=== PATIENT | female | born 1955 | race Two or more races ===

== ENCOUNTER → 2020-08-04 16:05 | Outpatient (BNVA) | payer MEDICARE, MEDICAID, SELFPAY | PROVIDERS: PCP Registered Nurse; Visit Provider Nurse Practitioner | DX: Z13.89 Encounter for screening for other disorder (principal) | CPT/HCPCS: Q3014 ==

== ENCOUNTER 2020-08-05 09:54 | Outpatient (REF) | payer MEDICARE, MEDICAID, SELFPAY ==
[2020-08-05 10:24] LABS: MANUAL DIFF FLAG NO
[2020-08-05 10:28] LABS: Basophils Percent Auto 0.2 % (0-2); Eosinophils Percent Auto 0.3 % (0-4); Hematocrit 42.4 % (37-47); Hemoglobin 14.1 g/dl (12.0-16.0); Imm Gran Abs Auto 0.04 X10*3/uL (0.00-0.03); Imm Gran Pct Auto 0.4 % (0.0-0.4); Lymphocytes Absolute Auto 1.9 X10*3/uL (1.2-4.9); Lymphocytes Percent Auto 20.9 % (20-40); Mean Corpuscular HGB Conc 33.3 g/dl (31.0-35.0); Mean Corpuscular Hemoglobin 29.7 pg (27.0-33.0); Mean Corpuscular Volume 89.3 fL (80-98); Mean Platelet Volume 9.6 fL (9.4-12.3); Monocytes Absolute Auto 0.4 X10*3/uL (0.1-1.2); Monocytes Percent Auto 4.6 % (2-11); Neutrophils Absolute Auto 6.5 X10*3/uL (2.0-8.3); Neutrophils Percent Auto 73.6 % (45-73); Platelet Count 319 X10*3/uL (160-400); Red Blood Count 4.75 X10*6/uL (4.20-5.50); Red Cell Distribution Width 11.9 % (11.0-16.0); White Blood Count 8.9 X10*3/uL (4.8-10.8)
[2020-08-05 10:48] LABS: Alanine Aminotransferase 17 U/L (0-31); Alkaline Phosphatase 76 U/L (39-117); Anion Gap 12 (12-20); Aspartate Amino Transferase 18 U/L (5-31); Bilirubin Total 0.5 mg/dL (0.0-1.0); Blood Urea Nitrogen 5 mg/dL (9-16); C Reactive Protein 0.02 mg/dL (< or = 0.50); Calcium 9.8 mg/dL (8.4-10.2); Carbon Dioxide 29 mmol/L (22-29); Chloride 98 mmol/L (96-108); Estimated Glomerular Filt Rate > 60; Glucose Random 129 mg/dL (60-115); Sodium 135 mmol/L (135-145); Total Protein 7.4 g/dL (6.5-8.0)
[2020-08-06 14:01] LABS: Gliadin Deamidated IgA Ab 4 Units; Gliadin Deamidated IgG Ab 1 Units
[2020-08-07 14:22] LABS: Transglutaminase Ab IgG 1 U/mL; Transglutaminase IgA 1 U/mL
== END 2020-08-05 09:55 | disposition home or self-care (01) ==
LOC: HO.LAB 09:54
PROVIDERS: PCP Registered Nurse; Visit Provider Nurse Practitioner
DX: K29.70 Gastritis, unspecified, without bleeding (principal)
CPT/HCPCS: 36415; 80053; 83516; 85025; 86140

== ENCOUNTER 2020-08-17 07:19 | Outpatient (REF) | payer MEDICARE, MEDICAID, SELFPAY ==
--- NOTE | ~2020-08-17 | MR_ITS ---
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 MRCP sequences were also performed. FINDINGS: LUNG BASES: The visualized lung bases are unremarkable. LIVER, GALLBLADDER, AND BILIARY TREE: The liver is normal in size, smooth in contour, and normal in signal. There are several dark on T1 and bright on T2-weighted sequences lesions in the liver probably representing cysts or hemangiomas. The largest measures 1 x 1.6 cm in the caudate lobe. There is no intra or extrahepatic biliary duct dilatation. The common bile duct measures 3 mm. The gallbladder is unremarkable with no evidence of gallbladder wall thickening, or obvious pericholecystic inflammatory changes. PANCREAS: Unremarkable. The main pancreatic duct is normal. SPLEEN: Unremarkable. ADRENAL GLANDS: Unremarkable. KIDNEYS AND URETERS: The kidneys are normal in size and shape. No hydronephrosis. No perinephric stranding. GASTROINTESTINAL TRACT: No bowel obstruction. There may be diverticulosis of the colon. No ascites or fluid collection. ABDOMINAL WALL: No significant hernia is appreciated. LYMPH NODES: No lymphadenopathy. VASCULAR: Unremarkable. OSSEOUS STRUCTURES: Marrow signal normal. MR/MR MRCP IMPRESSION: Normal caliber intra and extrahepatic bile ducts. Several small liver lesions probably representing cysts or hemangiomas. Probable small cyst or hemangioma in the spleen.
== END 2020-08-17 07:20 | disposition home or self-care (01) ==
LOC: HO.MRI 07:19
PROVIDERS: PCP Hospitalist; Visit Provider Nurse Practitioner
DX: Q44.5 Other congenital malformations of bile ducts (principal); K29.70 Gastritis, unspecified, without bleeding; R68.81 Early satiety
CPT/HCPCS: 74181

== ENCOUNTER → 2020-08-19 09:25 | Outpatient (REF) | payer MEDICARE, MEDICAID, SELFPAY ==
--- NOTE | ~2020-08-19 | NM_ITS ---
EXAMINATION: NM THYROID UPTAKE AND SCAN CLINICAL INFORMATION: Nontoxic thyroid nodule. Left nodule biopsy 2017 was performed. COMPARISON: Ultrasound thyroid gland 12/19/2016 TECHNIQUE: Following the oral administration of 285 microcuries of I-123 sodium iodide, thyroid uptake was performed and expressed as a percentage of the administrated dose. Gamma scintillation camera images of the thyroid in the anterior and right and left anterior oblique views were obtained using a pinhole collimator following the administration of 10 mCi Tc-99m pertechnetate. FINDINGS: Radioiodine uptake is 9.53% at 4 hours and 13.39% at 24 hours. On thyroid scan, there is large activity seen in the mid to lower pole left thyroid lobe consistent with a large nodule as was noted on ultrasound exam 12/20/2016. Minimal to very little activity is seen in the upper pole of left thyroid gland. There is no iodine activity seen in the right thyroid gland following blocking of left thyroid activity by lead. NM/NM thyroid w uptake IMPRESSION: [id number] sized left nodule in the mid to lower pole left gland essentially taking up most of the iodine activity on technetium scan. It does not appear hyperactive on the scan. There is no technetium activity seen in the right thyroid gland and minimal activity in left upper pole thyroid lobe. Normal reactive iodine uptake at 4 hours and 24 hours. It appears most of the activity is coming from large left thyroid nodule.
== END ==
LOC: HO.NUCMED 09:25
PROVIDERS: PCP Registered Nurse; Visit Provider Registered Nurse
DX: E04.1 Nontoxic single thyroid nodule (principal)
CPT/HCPCS: 78014; A9512; A9516

== ENCOUNTER 2020-08-31 10:33 | Outpatient (REF) | payer MEDICARE, MEDICAID, SELFPAY ==
[2020-08-31 16:52] LABS: MANUAL DIFF FLAG NO
[2020-08-31 16:58] LABS: Basophils Percent Auto 0.3 % (0-2); Eosinophils Percent Auto 0.1 % (0-4); Hematocrit 43.9 % (37-47); Hemoglobin 14.6 g/dl (12.0-16.0); Imm Gran Abs Auto 0.03 X10*3/uL (0.00-0.03); Imm Gran Pct Auto 0.3 % (0.0-0.4); Lymphocytes Absolute Auto 1.9 X10*3/uL (1.2-4.9); Lymphocytes Percent Auto 19.9 % (20-40); Mean Corpuscular HGB Conc 33.3 g/dl (31.0-35.0); Mean Corpuscular Volume 90.3 fL (80-98); Mean Platelet Volume 10.2 fL (9.4-12.3); Monocytes Absolute Auto 0.5 X10*3/uL (0.1-1.2); Monocytes Percent Auto 4.9 % (2-11); Neutrophils Absolute Auto 7.1 X10*3/uL (2.0-8.3); Neutrophils Percent Auto 74.5 % (45-73); Platelet Count 316 X10*3/uL (160-400); Red Blood Count 4.86 X10*6/uL (4.20-5.50); Red Cell Distribution Width 12.1 % (11.0-16.0); White Blood Count 9.5 X10*3/uL (4.8-10.8)
[2020-08-31 17:28] LABS: Alanine Aminotransferase 20 U/L (0-31); Albumin Level 4.1 g/dL (3.5-5.0); Alkaline Phosphatase 75 U/L (39-117); Anion Gap 18 (12-20); Aspartate Amino Transferase 19 U/L (5-31); Bilirubin Direct 0.2 mg/dL (0.0-0.5); Bilirubin Total 0.5 mg/dL (0.0-1.0); Blood Urea Nitrogen 7 mg/dL (9-16); Calcium 9.3 mg/dL (8.4-10.2); Carbon Dioxide 24 mmol/L (22-29); Chloride 100 mmol/L (96-108); Cholesterol 183 mg/dL; Estimated Glomerular Filt Rate > 60; Glucose Fasting 120 mg/dL (60-99); HDL Cholesterol 69 mg/dL; LDL Cholesterol Calculated 99 mg/dl; Potassium 3.7 mmol/L (3.3-5.1); Sodium 138 mmol/L (135-145); Total Protein 7.6 g/dL (6.5-8.0); Triglycerides 75 mg/dL
[2020-08-31 17:51] LABS: Free T4 (Free Thyroxine) 1.19 ng/dL (0.71-1.85)
[2020-09-01 09:37] LABS: Triiodothyronine T3 Total 94 ng/dL (76-181)
[2020-09-02 12:46] LABS: Alpha Fetoprotein 1.2 ng/mL
[2020-09-02 17:27] LABS: Thyroglobulin Antibodies <1 IU/mL (< or = 1); Thyroid Peroxidase Antibodies 16 IU/mL (<9)
[2020-09-04 15:32] LABS: Thyroid Stimulating Immunoglob <89 % baseline (<140)
[2020-09-07 09:36] LABS: Thyrotropin Receptor Antibody <1.00 IU/L (<=2.00)
== END 2020-08-31 10:34 | disposition home or self-care (01) ==
LOC: HO.LAB 10:33
PROVIDERS: Nurse Practitioner; PCP Nurse Practitioner Family; Visit Provider Internal Medicine
DX: R63.4 Abnormal weight loss (principal); K29.70 Gastritis, unspecified, without bleeding; E05.90 Thyrotoxicosis, unspecified without thyrotoxic crisis or storm; E04.2 Nontoxic multinodular goiter; R68.81 Early satiety; Q44.5 Other congenital malformations of bile ducts; Z00.00 Encounter for general adult medical examination without abnormal findings
CPT/HCPCS: 36415; 80048; 80061; 80076; 82105; 83520; 84439; 84445; 84480; 85025; 86376; 86800; Q3014

== ENCOUNTER 2020-09-03 09:16 | Outpatient (REF) | payer MEDICARE, MEDICAID, SELFPAY ==
[2020-09-03 11:36] LABS: Alanine Aminotransferase 18 U/L (0-31); Alkaline Phosphatase 66 U/L (39-117); Aspartate Amino Transferase 19 U/L (5-31); Bilirubin Direct 0.2 mg/dL (0.0-0.5); Bilirubin Total 0.5 mg/dL (0.0-1.0); Total Protein 7.3 g/dL (6.5-8.0)
[2020-09-03 11:44] LABS: Thyroid Stimulating Hormone 0.13 uIU/mL (0.32-4.0)
== END 2020-09-03 09:17 | disposition home or self-care (01) ==
LOC: HO.LAB 09:16
PROVIDERS: Visit Provider Internal Medicine
DX: Z00.00 Encounter for general adult medical examination without abnormal findings (principal); E05.90 Thyrotoxicosis, unspecified without thyrotoxic crisis or storm; E04.2 Nontoxic multinodular goiter; K29.70 Gastritis, unspecified, without bleeding; R68.81 Early satiety; Q44.5 Other congenital malformations of bile ducts
CPT/HCPCS: 36415; 80076; 84443

== ENCOUNTER 2020-09-18 08:19 | Outpatient (REF) | payer MEDICARE, MEDICAID, SELFPAY ==
[2020-09-18 10:19] LABS: Free T4 (Free Thyroxine) 1.18 ng/dL (0.71-1.85); Thyroid Stimulating Hormone 0.22 uIU/mL (0.32-4.0)
[2020-09-19 05:36] LABS: Triiodothyronine T3 Total 99 ng/dL (76-181)
== END 2020-09-18 08:20 | disposition home or self-care (01) ==
LOC: HO.LAB 08:19
PROVIDERS: Visit Provider Internal Medicine
DX: E05.90 Thyrotoxicosis, unspecified without thyrotoxic crisis or storm (principal)
CPT/HCPCS: 36415; 84439; 84443; 84480

== ENCOUNTER → 2020-09-25 07:56 | Outpatient (BNVA) | payer MEDICARE, MEDICAID, SELFPAY | PROVIDERS: Visit Provider Internal Medicine Endocrinology, Diabetes & Metabolism ==

== ENCOUNTER → 2020-09-30 13:46 | Outpatient (BNVA) | payer MEDICARE, MEDICAID, SELFPAY | PROVIDERS: PCP Nurse Practitioner Family; Visit Provider Internal Medicine Cardiovascular Disease | DX: R00.2 Palpitations (principal); E05.90 Thyrotoxicosis, unspecified without thyrotoxic crisis or storm | CPT/HCPCS: 93005; 99202 ==

== ENCOUNTER → 2020-10-13 15:14 | Outpatient (REF) | payer MEDICARE, MEDICAID, SELFPAY ==
--- NOTE | 2020-10-14 09:15 | ECG_ITS ---
Hook-up date: 2020-10-13 15:36:00 Duration: 41:42:00 Test Indications: palpitations Medications: 466318 QRS complexes * Ventricular ectopics which represent % of total QRS comp. 27 Supraventricular ectopics which represent <1 % of total QRS comp. * Paced QRS complexs which represent % of total QRS comp. VENTRICULAR ECTOPY * Isolated * Bigeminal Cycles * Couplets * Runs * Beats in Runs * Beats LONGEST at * BPM at :: -- * Beats FASTEST at * BPM at :: -- SUPRAVENTRICULAR ECTOPY 27 Isolated 0 Couplets 0 Runs 0 Beats in Runs * Beats LONGEST at * BPM at :: -- * Beats FASTEST at * BPM at :: -- HEART RATES 62 MIN at 05:48:03 2020-10-14 84 AVG 121 MAX at 14:40:12 2020-10-14 LONGEST RR 1.0160 secs at 05:47:59 2020-10-14 S-T LEVELS Channel 1 - 128 mm at 15:36:00 2020-10-13 - 128 mm at 15:36:00 2020-10-13 Channel 2 - 128 mm at 15:36:00 2020-10-13 - 128 mm at 15:36:00 2020-10-13 Channel 3 - 128 mm at 03:45:51 -- - 128 mm at 03:45:51 Basic rhythm Normal sinus rhythm No long pause or profound bradycardia Rare Premature atrial complexes No diary submitted Referred By: Kamari White Overread By: PRINCE ANTOINE MD
== END ==
LOC: HO.CARD 15:14
PROVIDERS: Visit Provider Internal Medicine Cardiovascular Disease
DX: R00.2 Palpitations (principal)
CPT/HCPCS: 93226

== ENCOUNTER → 2020-10-19 07:54 | Outpatient (REF) | payer MEDICARE, MEDICAID, SELFPAY ==
--- NOTE | ~2020-10-19 | NM_ITS ---
EXAMINATION: RADIONUCLIDE SOLID FOOD GASTRIC EMPTYING 4-HOUR STUDY CLINICAL INFORMATION: Gastritis, early satiety. COMPARISON: No previous gastric emptying study is available for comparison. TECHNIQUE: A standard meal consisting of 4 oz of Egg Beaters brand equivalent tagged with 830 microcuries Tc-99m Sulfur Colloid, 8 oz water and 2 slices of toast with jelly was administered orally to the patient. Images were obtained using a dual head gamma camera in the anterior and posterior projections over of the stomach immediately post ingestion and at hourly intervals up to 4 hours post ingestion. The anterior and posterior counts at each time interval were averaged using the geometric mean and expressed as percentage of the immediate post ingestion counts. FINDINGS: There is good visualization of activity in the stomach immediately post ingestion. As the study progresses, there is good clearance of activity from the stomach and visualization of progressively increasing small bowel activity. At the end of the study at 4 hours, there is mild abnormal retention of activity in the stomach. Retention in the stomach at each time interval was: 1 hour 95% (normal 37%-90%) 2 hours 69% (normal 30%-60%) 3 hours 29% 4 hours 14% (normal 0%-10%) NM/NM gastric emptying study IMPRESSION: Abnormal study. There is mild abnormal retention of solid food in the stomach at 4 hours.
== END ==
LOC: HO.NUCMED 07:54
PROVIDERS: Visit Provider Nurse Practitioner
DX: K29.70 Gastritis, unspecified, without bleeding (principal); R68.81 Early satiety
CPT/HCPCS: 78264; A9541

== ENCOUNTER 2020-10-26 12:51 | Outpatient (REF) | payer MEDICARE, MEDICAID, SELFPAY ==
[2020-10-26 14:54] LABS: Albumin Level 4.1 g/dL (3.5-5.0); Calcium 9.7 mg/dL (8.4-10.2)
[2020-10-26 15:21] LABS: Free T4 (Free Thyroxine) 0.98 ng/dL (0.71-1.85); Vitamin D 25-OH Total 14.8 ng/mL (>30)
[2020-10-27 13:21] LABS: Triiodothyronine T3 Total 101 ng/dL (76-181)
[2020-10-28 13:32] LABS: PTHI 58 pg/mL (14-64)
== END 2020-10-26 12:52 | disposition home or self-care (01) ==
LOC: HO.LAB 12:51
PROVIDERS: PCP Internal Medicine; Visit Provider Internal Medicine
DX: E04.2 Nontoxic multinodular goiter (principal); E05.90 Thyrotoxicosis, unspecified without thyrotoxic crisis or storm; E55.9 Vitamin D deficiency, unspecified; K29.70 Gastritis, unspecified, without bleeding; R68.81 Early satiety; Q44.5 Other congenital malformations of bile ducts; Z86.16 Personal history of COVID-19
CPT/HCPCS: 36415; 82040; 82306; 82310; 83970; 84439; 84480; 99212

== ENCOUNTER → 2020-10-29 08:20 | Outpatient (REF) | payer MEDICARE, MEDICAID, SELFPAY ==
--- NOTE | 2020-10-29 08:24 | CA_ITS ---
Transthoracic Echocardiogram Patient (Last, First, Middle): Meghna Tavares, Gender: Female Date of : 1955 Age: 65 Procedure Date: 10/29/2020 Procedure Type: Transthoracic Echocardiogram Location: OP Height: 152.4 cm Weight: 45.81 kg BSA: 1.40 m2 Heart Rate: bpm BP: 133 / 73 mmHg Valve Setter: ALLISON Referring MD: Kamari White MD Symptoms: R00.2 - Palpitations Study Quality: Fair ECG Rhythm: Sinus Conclusions: - The left ventricular systolic function is hyperdynamic. The visually estimated ejection fraction is >70%. - E/E prime ratio is between 8 and 15 consistent with indeterminate filling pressures. Evidence suggests grade I (mild) diastolic dysfunction. - No obvious valvular pathology seen on this study. Findings Left Ventricle Normal left ventricular cavity size. There is normal left ventricular wall thickness. The left ventricular systolic function is hyperdynamic. The visually estimated ejection fraction is >70%. There is no evidence of regional wall motion abnormalities. E/E prime ratio is between 8 and 15 consistent with indeterminate filling pressures. Evidence suggests grade I (mild) diastolic dysfunction. Right Ventricle Normal right ventricular cavity size and systolic function. Atria The left atrium is normal in size. The right atrium is normal in size. Aortic Valve The aortic valve structure and function is likely normal. There is no aortic valve stenosis. There is no aortic valve regurgitation. Mitral Valve The mitral valve appears normal. There is no mitral valve regurgitation. There is no mitral valve stenosis. Pulmonic Valve The pulmonic valve was not well visualized. Tricuspid Valve Normal tricuspid valve structure. There is mild tricuspid valve regurgitation. The pulmonary artery systolic pressure is normal. Great Vessels The asc aorta is normal in size. Venous The inferior vena cava is normal in size and collapses greater than 50% with inspiration. Pericardium/Pleural There is no evidence of pericardial effusion. Prior Study Comparison No significant change compared to prior study dated: 10/29/1998. Recommendations, Care & Conclusions No obvious valvular pathology seen on this study. Measurements M-Mode Liner Measurements Normals - Women/Men AOV Cusps: 1.80 1.5-2.6 cm/m2 2D Linear Measurements IVSd: 0.71 0.6-0.9/0.6-1.0 cm LVIDd: 3.96 3.9-5.3/4.2-5.9 cm LVIDd Index: 2.83 2.4-3.2/2.2-3.1 cm/m2 LVIDs: 2.43 2.0-3.6 cm LVPWd: 0.68 0.7-1.1 cm Ao Root: 2.30 2.1-3.5 cm LA Diam: 2.50 2.7-3.8/3.0-4.0 cm LAIDs Index: 1.79 1.5-2.3 cm/m2 LV Mass: 94.76 67-162/88-224 g LV Mass Index: 67.69 43-95/49-115 g/m2 LVOT Diam: 1.70 3.0+(-)1.3 cm 2D Systolic Function EF 4C: 64.50 >55% Mitral Valve MV Pk E: 1.06 MV PK A: 1.23 MV Decel Time: 225.00 E/A: 0.90 E'Lateral: 9.90 E'Medial: 6.42 E/E' Med: 16.50 E/E' Lat: 10.70 PHT: 66.00 MVA PHT: 3.33 Decel [place]: 4.73 Aortic Valve AoV Pk Curtis: 1.74 AoV Mn Curtis: 1.12 AoV VTI: 0.36 AoV Pk Grad: 12.00 Aov Mn Grad: 6.00 RIZWAN Cont.VTI: 1.77 LVOT LVOT Pk Curtis: 1.35 LVOT Mn Curtis: 0.86 LVOT VTI: 0.28 LVOT Pk Grad: 7.00 LVOT Mn Grad: 4.00 LVOT Diam: 1.70 LVOT Area: 2.27 Diastolic Function MV Pk E: 1.06 MV Pk A: 1.23 E/A: 0.90 E'Medial: 6.42 E/E' Med: 16.50 E' Laterial: 9.90 E/E' Lat: 10.70 Tricuspid Valve TR Pk Curtis: 2.26 TR Pk Grad: 20.00 RA Press: 3.00 RVSP: 23.00 Great Vessels Aorta Ao Root-2D: 2.30 2.0-3.7 cm Ao Asc: 2.90 2.1-3.4 cm Pulmonary Valve PV Pk Curtis: 1.06 Peak PV Grad: 4.00 Updated in Other Vendor System with Status of Final Terence Storm MD electronically signed on 10/30/2020 2:44:13 PM with status of Final
== END ==
LOC: HO.CARD 08:20
PROVIDERS: Visit Provider Internal Medicine Cardiovascular Disease
DX: R00.2 Palpitations (principal)
CPT/HCPCS: 93306

== ENCOUNTER → 2020-11-12 12:50 | Outpatient (BNVA) | payer MEDICARE, MEDICAID, SELFPAY | PROVIDERS: PCP Internal Medicine; Visit Provider Internal Medicine Cardiovascular Disease | DX: R00.2 Palpitations (principal); E05.90 Thyrotoxicosis, unspecified without thyrotoxic crisis or storm | CPT/HCPCS: 99212 ==

== ENCOUNTER → 2020-12-28 15:07 | Outpatient (BNVA) | payer MEDICARE, MEDICAID, SELFPAY | PROVIDERS: Visit Provider Internal Medicine | DX: E05.90 Thyrotoxicosis, unspecified without thyrotoxic crisis or storm (principal) | CPT/HCPCS: 99212 ==

== ENCOUNTER → 2020-12-31 15:43 | Outpatient (BNVA) | payer MEDICARE, MEDICAID, SELFPAY | PROVIDERS: Visit Provider Nurse Practitioner | DX: Z13.89 Encounter for screening for other disorder (principal) | CPT/HCPCS: Q3014 ==

== ENCOUNTER 2021-01-12 08:10 | Outpatient (REF) | payer MEDICARE, MEDICAID, SELFPAY ==
[2021-01-12 08:36] LABS: MANUAL DIFF FLAG NO
[2021-01-12 08:42] LABS: Basophils Percent Auto 0.2 % (0-2); Eosinophils Percent Auto 0.2 % (0-4); Hematocrit 38.3 % (37-47); Hemoglobin 12.4 g/dl (12.0-16.0); Imm Gran Abs Auto 0.02 X10*3/uL (0.00-0.03); Imm Gran Pct Auto 0.4 % (0.0-0.4); Lymphocytes Absolute Auto 1.5 X10*3/uL (1.2-4.9); Lymphocytes Percent Auto 31.4 % (20-40); Mean Corpuscular HGB Conc 32.4 g/dl (31.0-35.0); Mean Corpuscular Hemoglobin 29.9 pg (27.0-33.0); Mean Corpuscular Volume 92.3 fL (80-98); Mean Platelet Volume 10.6 fL (9.4-12.3); Monocytes Absolute Auto 0.2 X10*3/uL (0.1-1.2); Monocytes Percent Auto 4.6 % (2-11); Neutrophils Percent Auto 63.2 % (45-73); Platelet Count 245 X10*3/uL (160-400); Red Blood Count 4.15 X10*6/uL (4.20-5.50); White Blood Count 4.8 X10*3/uL (4.8-10.8)
[2021-01-12 09:12] LABS: Alanine Aminotransferase 13 U/L (0-31); Alkaline Phosphatase 61 U/L (39-117); Anion Gap 12 (12-20); Aspartate Amino Transferase 15 U/L (5-31); Bilirubin Total 0.7 mg/dL (0.0-1.0); Blood Urea Nitrogen 8 mg/dL (9-16); Calcium 9.7 mg/dL (8.4-10.2); Carbon Dioxide 28 mmol/L (22-29); Chloride 106 mmol/L (96-108); Estimated Glomerular Filt Rate > 60; Glucose Random 120 mg/dL (60-115); Sodium 142 mmol/L (135-145)
[2021-01-12 09:32] LABS: Free T4 (Free Thyroxine) 0.92 ng/dL (0.71-1.85); Vitamin D 25-OH Total 19.6 ng/mL (>30)
[2021-01-12 09:33] LABS: Thyroid Stimulating Hormone 0.26 uIU/mL (0.32-4.0)
[2021-01-13 16:37] LABS: Calcium (PTHI) 9.8 mg/dL (8.6-10.4); PTHI 60 pg/mL (14-64)
[2021-01-13 18:07] LABS: Triiodothyronine T3 Total 101 ng/dL (76-181)
== END 2021-01-12 08:11 | disposition home or self-care (01) ==
LOC: HO.LAB 08:10
PROVIDERS: Internal Medicine; PCP Internal Medicine; Visit Provider Nurse Practitioner
DX: K29.70 Gastritis, unspecified, without bleeding (principal); R63.4 Abnormal weight loss; E04.2 Nontoxic multinodular goiter; E05.90 Thyrotoxicosis, unspecified without thyrotoxic crisis or storm; E55.9 Vitamin D deficiency, unspecified
CPT/HCPCS: 36415; 80053; 82306; 83970; 84100; 84439; 84443; 84480; 85025

== ENCOUNTER → 2021-02-19 13:55 | Outpatient (BNVA) | payer MEDICARE, MEDICAID, SELFPAY | PROVIDERS: PCP Internal Medicine; Visit Provider Nurse Practitioner | CPT/HCPCS: Q3014 ==

== ENCOUNTER 2021-04-23 08:23 | Day surgery (SDC) | payer OTHER, SELFPAY ==
--- NOTE | 2021-04-22 12:25 | HO.ANESPROP2 ---
Documented by User: Mary Avila NP 04/22/21 12:39 HPI - Anesthesia Eval Consult details Narrative: 65yo F for Upper Endoscopy and Colonoscopy Cardiac w/u for palpitations likely r/t hyperthyroid - propranolol with good effect PMFSH Active Problems Active Problems: All Active Problems (Updated 02/19/21 @ 14:38 by ARMANI Singh) Delayed gastric emptying (Acute) Gastritis (Acute) Early satiety (Acute) Biliary anomaly (Acute) Well adult exam (Acute) Weight loss (Acute) Colon cancer screening (Acute) GERD (gastroesophageal reflux disease) (Acute) Toxic thyroid nodule (Acute) Palpitations (Acute) Vitamin D deficiency (Acute) Multinodular thyroid (Acute) Thyroid disorder (Acute) Hospital discharge follow-up (Acute) Hyperthyroidism (Acute) Past Medical History Medical History Anxiety and depression History of COVID-19 Hospital discharge follow-up Hyperthyroidism Insomnia Multinodular thyroid Osteoporosis Palpitations Thyroid disorder Toxic thyroid nodule Vitamin D deficiency Family History Family History Sister Diabetes HTN (hypertension) Heart problem Family/Other Diabetes Surgical History Surgical History History of esophagogastroduodenoscopy (EGD) History of tubal ligation Hx of colonoscopy Hx of hysterectomy Hx of thyroidectomy Social History Social History Household Members Other:: Daughters take turns being w/ patient Are you a primary palliative care nurse practitioner to a significant other at home: No Do you presently have visiting nurse or other home services: No (Daughters spending a lot of time caring for patient) Alcohol intake: current Alcohol intake frequency: does not drink Patient Tobacco Use Status: Never used Tobacco Use of substances other than those prescribed or required for medical reasons: No Are you DNR?: No Advance Directives: No Advance Directives Information Provided: Yes Meds Allergies Allergy/AdvReac Type Severity Reaction Status Date / Time aspirin [ASPIRIN] Allergy Intermediate GENERALIZED Verified 04/23/21 09:01 BODY ACHES, NUMBNESS latex Allergy Intermediate itchy rash Verified 04/23/21 09:01 Penicillins [PENICILLINS] Allergy Intermediate RASH, HIVES Verified 04/23/21 09:01 Home Medications Medication Instructions Recorded Confirmed Last Taken Type levothyroxine 50 mcg tablet 1 tab PO DAILY 02/17/21 02/17/21 Unknown History Exam Exam Date and Time: April 22, 2021 1225 Pertinent Lab Results Pertinent Lab Results: Laboratory Tests 01/12/21 01/12/21 08:20 08:20 WBC 4.8 Hgb 12.4 Hct 38.3 Plt Count 245 Sodium 142 Potassium 4.0 Chloride 106 Carbon Dioxide 28 BUN 8 L Creatinine 0.75 Narrative Narrative: Holter 10/2020 Basic rhythm Normal sinus rhythm No long pause or profound bradycardia Rare Premature atrial complexes No diary submitted Echo 10/2020 Conclusions: - The left ventricular systolic function is hyperdynamic.? The? visually estimated ejection fraction is >70%. ? - E/E prime ratio is between 8 and 15 consistent with ? indeterminate filling pressures.? Evidence suggests grade I ? ? (mild) diastolic dysfunction. ? - No obvious valvular pathology seen on this study. ? ?? Assessment and Plan Assessment Anesthesia Assessment: Chart Reviewed Documented by User: Mehran Dillon 04/23/21 09:40 HPI - Anesthesia Eval Consult details Narrative: 65yo F for Upper Endoscopy Cardiac w/u for palpitations likely r/t hyperthyroid - propranolol with good effect PMFSH Past Medical History Medical History Anxiety and depression History of COVID-19 Hospital discharge follow-up Hyperthyroidism Insomnia Multinodular thyroid Osteoporosis Palpitations Thyroid disorder Toxic thyroid nodule Vitamin D deficiency Functional capacity: independent ambulation Family History Family History Sister Diabetes HTN (hypertension) Heart problem Family/Other Diabetes Family history of problems with anesthesia: No Surgical History Surgical History History of esophagogastroduodenoscopy (EGD) History of tubal ligation Hx of colonoscopy Hx of hysterectomy Hx of thyroidectomy History of Problems with Anesthesia: No Social History Social History Household Members Other:: Daughters take turns being w/ patient Are you a primary palliative care nurse practitioner to a significant other at home: No Do you presently have visiting nurse or other home services: No (Daughters spending a lot of time caring for patient) Alcohol intake: current Alcohol intake frequency: does not drink Patient Tobacco Use Status: Never used Tobacco Use of substances other than those prescribed or required for medical reasons: No Are you DNR?: No Advance Directives: No Advance Directives Information Provided: Yes Meds Allergies Allergy/AdvReac Type Severity Reaction Status Date / Time aspirin [ASPIRIN] Allergy Intermediate GENERALIZED Verified 04/23/21 09:01 BODY ACHES, NUMBNESS latex Allergy Intermediate itchy rash Verified 04/23/21 09:01 Penicillins [PENICILLINS] Allergy Intermediate RASH, HIVES Verified 04/23/21 09:01 Home Medications Medication Instructions Recorded Confirmed Last Taken Type levothyroxine 50 mcg tablet 1 tab PO DAILY 02/17/21 02/17/21 Unknown History Exam Airway Mallampati Class: III TM Dist: >3cm Neck ROM: Full Denture: Upper Loose/Missing/Broken Teeth: Yes Heart: rrr Lungs: bl breath sounds Assessment and Plan Final Anesthetic Review Family History of Problems with Anesthesia: No History of Problems with Anesthesia: No ASA Class: II Final Preanesthetic Review: Meds/Allgs Chart Reviewed and Anes Risks/Benef Reviewed Patient Risk: Intermediate Procedure Risk: Intermediate Anesthetic Plan Anesthetic Plan: MAC: Disposition: Standard PACU
--- NOTE | 2021-04-23 08:54 | MHC.SHP ---
Pre-Procedural Eval Section A Date of Service: 04/23/21 The patient is an INPATIENT: No The History & Physical has been completed within 30 days and I have reviewed it.: No Section B Chief Complaint: screening,reflux disease Details of Present Illness: GERD, colon cancer screening Relevant Family History (Specify if Yes): No Relevant Social History: None Present Medications: see Short Stay Collaborative assessment Medical History: Significant History (Anxiety and depression History of COVID-19 Hospital discharge follow-up Hyperthyroidism Insomnia Multinodular thyroid Osteoporosis Palpitations Thyroid disorder Toxic thyroid nodule Vitamin D deficiency) History of Previous Operations: Relevant previous surgery/procedure and date(s) (History of esophagogastroduodenoscopy (EGD) History of tubal ligation Hx of colonoscopy Hx of hysterectomy Hx of thyroidectomy) Allergies: Allergies Allergy/AdvReac Type Severity Reaction Status Date / Time aspirin [ASPIRIN] Allergy Intermediate GENERALIZED Verified 02/19/21 13:56 BODY ACHES, NUMBNESS latex Allergy Intermediate itchy rash Verified 02/19/21 13:56 Penicillins [PENICILLINS] Allergy Intermediate RASH, HIVES Verified 02/19/21 13:56 Review of Systems Sugical H&P ROS: Negative: Constitution, Cardiovascular and Respiratory and Yes, Specify: Gastrointestinal (GERD) Exam Surgical H&P Exam: Normal: Heart, Normal: Lungs, Normal: Extremities and Normal: Abdomen Plan Diagnosis/Plan: Change (Pt would like to have only EGD today. She did not take the prep for the colonoscopy) I have reviewed the history and physical and performed a pertinent physical examination on my patient. No changes have occurred unless specified.
--- NOTE | 2021-04-23 08:59 | PM.OP ---
Brief Operative Note Date of Service: 04/23/21 Pre-op diagnosis: GERD, Post-op diagnosis: other (GERD, gastritis, gastric polyp) Procedure: FLEXIBLE TRANSORAL UPPER GASTROINTESTINAL ENDOSCOPY WITH BIOPSIES UPPER ENDOSCOPY Consent: Indications for the procedure and potential complications of bleeding, perforation, reaction to medications and missed diagnosis were discussed with the patient and informed consent was obtained. Instrument: Olympus GIF H 190 mid size upper endoscope Monitoring: Vital signs and clinical assessment, continuous EKG monitoring, Pulse oximetry, Carbon Dioxide monitoring and blood pressure monitoring were done throughout the procedure. Procedure: The patient was placed in the left lateral decubitis position and pre-procedure medications were administered and a bite block was placed. The endoscope was inserted into the mouth and advanced under direct vision to the third part of duodenum. A careful inspection was made as the upper endoscope was withdrawn including a retroflexed examination of the proximal stomach; Findings and interventions are described below. Findings: Larynx: Normal Esophagus: GE junction at 35 cms. No esophagitis or Reed's. Stomach: Moderate gastric erythema with decreased fundal folds. Biopsies were obtained from the antrum and body of the stomach. Two small 2-3 mm polyps in the fundus - biopsied. Grade 2 flap valve on retroflexed examination of the cardia. Duodenum: Normal bulb and descending duodenum Intervention: Biopsies as noted above Impression and Post Procedure Diagnosis: Endoscopy Findings: STOMACH: Moderate gastric erythema with decreased fundal folds. Biopsies were obtained from the antrum and body of the stomach. Two small 2-3 mm polyps in the fundus - biopsied. No retained food noted in the stomach. Plan: Await pathology results Patient has an appointment on 05/24/21 in the GI Clinic with Mari Abbott NP. Patient will need to be rescheduled for her screening colonoscopy since she did not take the prep yesterday (? either the prep was not at the pharmacy or her daughter did not pick it up). Above findings were reviewed with the patient and gastric polyps and GERD handouts were given in the discharge area Surgeon: Anabelle Lew MD Anesthesia: MAC (Dr Dillon) Was an Lens Grinding Machine Operator used for this Procedure?: Yes Lens Grinding Machine Operator: Cassidy Dorado Estimated blood loss (mL): 0 Pathology: other ( A. stomach biopsies, R/O H. pylori B. gastric body biopsies C. gastric polyp) Condition: stable Disposition: PACU
--- NOTE | 2021-04-23 09:00 | W.PM.OPN ---
Operative Note Operative Note Date of Service: 04/23/21 Narrative: Pre-op diagnosis:?GERD, Post-op diagnosis:?other (GERD, gastritis, gastric polyp) Procedure:? FLEXIBLE TRANSORAL UPPER GASTROINTESTINAL ENDOSCOPY WITH BIOPSIES UPPER ENDOSCOPY Consent:?Indications for the procedure and potential complications of bleeding, perforation, reaction to medications and missed diagnosis were discussed with the patient and informed consent was obtained. Instrument:?Olympus GIF H 190 mid size upper endoscope Monitoring: Vital signs and clinical assessment, continuous EKG monitoring, Pulse oximetry, Carbon Dioxide monitoring and blood pressure monitoring were done throughout the procedure. Procedure:?The patient was placed in the left lateral decubitis position and pre-procedure medications were administered and a bite block was placed. The endoscope was inserted into the mouth and advanced under direct vision to the third part of duodenum. A careful inspection was made as the upper endoscope was withdrawn including a retroflexed examination of the proximal stomach; Findings and interventions are described below. Findings: Larynx:? Normal Esophagus:?GE junction at 35 cms. ? No esophagitis or Reed's. Stomach:?Moderate gastric erythema with decreased fundal folds. Biopsies were obtained from the antrum and body of the stomach.? Two small 2-3 mm polyps in the fundus - biopsied. Grade 2 flap valve on retroflexed examination of the cardia. Duodenum:?Normal bulb and descending duodenum Intervention:?Biopsies as noted above Impression and Post Procedure Diagnosis: Endoscopy Findings: STOMACH:?Moderate gastric erythema with decreased fundal folds. Biopsies were obtained from the antrum and body of the stomach.? Two small 2-3 mm polyps in the fundus - biopsied. No retained food noted in the stomach. Plan: Await pathology results Patient has an appointment on 05/24/21 in the GI Clinic with? Mari Abbott NP. Patient will need to be rescheduled for her screening colonoscopy since she did not take the prep yesterday (? either the prep was not at the pharmacy or her daughter did not pick it up). Above findings were reviewed with the patient and gastric polyps and GERD handouts were given in the discharge area Surgeon:?Anabelle Lew MD Anesthesia:?MAC (Dr Dillon) Was an Automobile Wrecker used for this Procedure?:?Yes Automobile Wrecker:?Cassidy Dorado Estimated blood loss (mL):?0 Pathology:?other ( A. stomach biopsies, R/O H. pylori? B. gastric body biopsies? C. gastric polyp) Condition:?stable Disposition:?PACU
[2021-04-23 09:02] VITALS: BP 134/69; PULSE 77; RESP 16; TEMP 36.9; O2SAT 98; BMI 18.3
[2021-04-23] MEDS: Lactated Ringers 1,000 ML 100 ML IVCONT (09:11)
[2021-04-23 10:13] VITALS: BP 103/51; PULSE 68; RESP 11; TEMP 36.8; O2SAT 100
[2021-04-23 10:30] VITALS: BP 134/82; PULSE 61; RESP 16; TEMP 36.8; O2SAT 98
== END 2021-04-23 10:54 | disposition home or self-care (01) ==
PROVIDERS: PCP Internal Medicine; Visit Provider Internal Medicine Gastroenterology
PROC: (CPT 43239; principal; 2021-04-23 09:40)
DX: Z12.11 Encounter for screening for malignant neoplasm of colon (principal); K21.9 Gastro-esophageal reflux disease without esophagitis; K29.70 Gastritis, unspecified, without bleeding; K31.7 Polyp of stomach and duodenum; E05.90 Thyrotoxicosis, unspecified without thyrotoxic crisis or storm; Q44.5 Other congenital malformations of bile ducts; R68.81 Early satiety; Z79.899 Other long term (current) drug therapy; Z88.0 Allergy status to penicillin; Z88.8 Allergy status to other drugs, medicaments and biological substances; Z91.040 Latex allergy status
CPT/HCPCS: 43239; 88305; 88342

== ENCOUNTER → 2021-05-19 09:36 | Outpatient (BNVA) | payer OTHER, SELFPAY | PROVIDERS: PCP Internal Medicine; Referring Provider Internal Medicine; Visit Provider Internal Medicine Cardiovascular Disease | DX: R00.2 Palpitations (principal) | CPT/HCPCS: 99212 ==

== ENCOUNTER → 2021-05-24 13:42 | Outpatient (BNVA) | payer OTHER, SELFPAY | PROVIDERS: PCP Internal Medicine; Referring Provider Internal Medicine; Visit Provider Nurse Practitioner ==

== ENCOUNTER → 2021-08-20 13:47 | Outpatient (BNVA) | payer OTHER, SELFPAY | PROVIDERS: PCP Internal Medicine; Referring Provider Internal Medicine; Visit Provider Nurse Practitioner | DX: K21.9 Gastro-esophageal reflux disease without esophagitis (principal); K58.0 Irritable bowel syndrome with diarrhea; K30 Functional dyspepsia; R19.5 Other fecal abnormalities; E89.0 Postprocedural hypothyroidism; Z88.0 Allergy status to penicillin; Z88.6 Allergy status to analgesic agent; Z91.040 Latex allergy status | CPT/HCPCS: 99212 ==

== ENCOUNTER → 2021-10-21 08:07 | Outpatient (BNVA) | payer OTHER, SELFPAY | PROVIDERS: PCP Internal Medicine; Visit Provider Nurse Practitioner Family | DX: G47.00 Insomnia, unspecified (principal); R51.9 Headache, unspecified; R25.1 Tremor, unspecified; R42 Dizziness and giddiness | CPT/HCPCS: 99202 ==

== ENCOUNTER → 2022-01-26 14:18 | Outpatient (BNVA) | payer OTHER, MEDICAID, SELFPAY | PROVIDERS: PCP Internal Medicine; Referring Provider Internal Medicine; Visit Provider Internal Medicine Cardiovascular Disease | DX: R00.2 Palpitations (principal); E89.0 Postprocedural hypothyroidism; Z79.899 Other long term (current) drug therapy | CPT/HCPCS: 99212 ==

== ENCOUNTER → 2022-02-10 11:18 | Outpatient (BNVA) | payer OTHER, MEDICAID, SELFPAY | PROVIDERS: Visit Provider Nurse Practitioner Family | DX: R25.1 Tremor, unspecified (principal); R51.9 Headache, unspecified; R44.2 Other hallucinations; K30 Functional dyspepsia; Z79.899 Other long term (current) drug therapy | CPT/HCPCS: 99212 ==

== ENCOUNTER → 2022-03-09 13:28 | Outpatient (BNVA) | payer OTHER, SELFPAY | PROVIDERS: PCP Internal Medicine; Visit Provider Student in an Organized Health Care Education/Training Program | DX: M79.7 Fibromyalgia (principal) | CPT/HCPCS: 99202 ==

== ENCOUNTER → 2022-05-02 14:28 | Outpatient (BNVA) | payer OTHER, SELFPAY | PROVIDERS: PCP Internal Medicine; Visit Provider Nurse Practitioner Family | DX: R51.9 Headache, unspecified (principal); R44.2 Other hallucinations; R42 Dizziness and giddiness | CPT/HCPCS: 99212 ==

== ENCOUNTER → 2022-05-23 09:02 | Outpatient (BNVA) | payer OTHER, SELFPAY | PROVIDERS: PCP Internal Medicine; Visit Provider Dietitian, Registered | DX: K31.84 Gastroparesis (principal) | CPT/HCPCS: 97802 ==

== ENCOUNTER → 2022-06-03 14:59 | Outpatient (BNVA) | payer OTHER, SELFPAY | PROVIDERS: PCP Internal Medicine; Visit Provider Student in an Organized Health Care Education/Training Program | DX: M79.7 Fibromyalgia (principal) | CPT/HCPCS: 99212 ==

== ENCOUNTER → 2022-08-31 13:26 | Outpatient (BNVA) | payer OTHER, SELFPAY | PROVIDERS: PCP Internal Medicine; Visit Provider Dietitian, Registered | DX: K31.84 Gastroparesis (principal) | CPT/HCPCS: 97803 ==

== ENCOUNTER → 2022-10-07 15:04 | Outpatient (BNVA) | payer OTHER, SELFPAY | PROVIDERS: PCP Internal Medicine; Visit Provider Nurse Practitioner Family | DX: R51.9 Headache, unspecified (principal); R44.2 Other hallucinations | CPT/HCPCS: 99212 ==

== ENCOUNTER 2023-02-14 08:38 | Outpatient (AMB) | payer OTHER, MEDICAID, SELFPAY ==
[2023-02-14 08:39] VITALS: BP 104/68; PULSE 60; O2SAT 97; BMI 20.1
--- NOTE | 2023-02-14 08:39 | MHC.OFFVIS ---
Intake Vital Signs 02/14/23 08:39 Height 5 ft Weight 103 lb 2 oz BMI 20.1 BP 104/68 Blood Pressure Location Lt brachial Position Sitting Pulse 60 Pulse Source Pulse Oximeter Pulse Oximetry (%) 97 Oxygen Delivery Method Room Air Intake Visit Reasons: 3 mnts f/u for ZIEGLER Intake Note: Pt presents in office for a 3 month f/u for ZIEGLER. Pts daughter states things are about the same. Registered Public Surveyor Required: No Allergies aspirin [ASPIRIN] Allergy (Intermediate, Verified 02/14/23 08:42) GENERALIZED BODY ACHES, NUMBNESS latex Allergy (Intermediate, Verified 02/14/23 08:42) itchy rash Penicillins [PENICILLINS] Allergy (Intermediate, Verified 02/14/23 08:42) RASH, HIVES mold Allergy (Verified 02/14/23 08:42) Nasal congestion dust mites Allergy (Mild, Uncoded 02/14/23 08:42) Nasal congestion Medication List - Last Reconciled 02/14/23 by NASIMA Elizabeth levothyroxine (Synthroid) 50 mcg PO DAILY [Magnesium PO BEDTIME PRN] miscellaneous medical supply Wheelchair vitamin B complex 1 cap PO DAILY HPI HPI Comments History of Present Illness Details 67-yr-old female presents for f/u visit, accompanied by her dtr. Pt denies any significant interval medical changes. Pt 's dtr reports that pt's cortisol levels were WNL. She has had an adjustment in her thyroid supplement and timing, but this has not helped. She continues to have episodes of feeling like she will fall, feels off-balance, feels her inside is going faster, then feels fireworks going off inside of her (stomach, chest, up through her ears), feels like water is running down inside her lungs, feels hot and sweating. She hears water running down her head. This is better 1st thing in the morning, but starts after she eats breakfast, then may subside, but worsen again after lunch and after dinner. This is also worse when sitting down. And better when moving around. Pt has been avoiding gluten x's 1.5 yrs- w/o effect. They are trying food elimination but has not found a specific food culprit. Has had allergy consult- states environmental and pineapple allergy. Note- pt was prescribed Creon in the past by [facility]- but never tried. Now f/b [facility]. PFSH Medical History Insomnia Anxiety and depression History of COVID-19 Toxic thyroid nodule Palpitations Vitamin D deficiency Multinodular thyroid Thyroid disorder Hospital discharge follow-up Hyperthyroidism Osteoporosis Surgical History H/O endoscopy Hx of thyroidectomy History of tubal ligation History of esophagogastroduodenoscopy (EGD) Hx of colonoscopy Hx of hysterectomy Family History Sister Diabetes HTN (hypertension) Heart problem Family/Other Diabetes Social History (Updated 10/07/22 @ 15:13 by Joy Dubois CMA) Household Members Other:: Daughters take turns being w/ patient Are you a primary child care associate teacher to a significant other at home: No Do you presently have visiting nurse or other home services: No (Daughters spending a lot of time caring for patient) Alcohol intake: current Alcohol intake frequency: does not drink Patient Tobacco Use Status: Never used Tobacco Review of Systems Const All systems reviewed & are unremarkable except as noted in HPI and below Physical Exam Vital Signs: Last Vital Signs Pulse 60 02/14/23 08:39 BP 104/68 02/14/23 08:39 Pulse Ox 97 02/14/23 08:39 Oxygen Delivery Method Room Air 02/14/23 08:39 BMI result Body Mass Index 20.1 Const General: cooperative and no acute distress Orientation/consciousness: patient oriented x3 HEENT Head: Yes normocephalic Resp Effort & Inspection: normal respiratory effort and able to speak in complete sentences Neuro Other: Steady gait w/ walker General: patient oriented x3 Cognition (Neuro): normal cognition Motor exam (neuro): 5/5 motor strength present throughout Psych Appearance: grossly normal Mental Status: mental status grossly normal Speech and movement: Normal speech and movement present Affect: normal affect Attitude: cooperative Thought process: Normal thought process present Thought content: Normal thought content present Insight: Good insight present (Psych) Judgement: Good judgement present (Psych) Assessment & Plan Assessment & Plan (1) Dizziness: Code(s): R42 - Dizziness and giddiness (2) Headache: Comment: ? complex migraine Code(s): R51.9 - Headache, unspecified (3) Tremor: Code(s): R25.1 - Tremor, unspecified Plan Pt advised to try PT for vestibular eval & tx. F/u w/ GI/mathematician- r/t food tolerance. Future considerations- Amitriptyline. f/u in 3-4 months. Orders: Orders PT Evaluation and Treatment Today R42 - Dizziness and giddiness Coding Level of Care Code Est Pt Level 3 (92146) Diagnoses Dizziness R42 Headache R51.9 Tremor R25.1
== END 2023-02-14 09:36 | disposition home or self-care (01) ==
PROVIDERS: Visit Provider Nurse Practitioner Family
DX: R42 Dizziness and giddiness (principal); R51.9 Headache, unspecified; R25.1 Tremor, unspecified
CPT/HCPCS: 99213

== ENCOUNTER → 2023-02-14 08:38 | Outpatient (BNVA) | payer OTHER, MEDICAID, SELFPAY | PROVIDERS: Visit Provider Nurse Practitioner Family | DX: R42 Dizziness and giddiness (principal); R51.9 Headache, unspecified; R25.1 Tremor, unspecified | CPT/HCPCS: 99212 ==

== ENCOUNTER 2023-06-19 10:58 | Outpatient (AMB) | payer OTHER, MEDICAID, SELFPAY ==
--- NOTE | 2023-06-19 11:13 | MHC.OFFVIS ---
Intake Vital Signs 06/19/23 11:14 Height 5 ft Weight 104 lb 4 oz BMI 20.4 BP 80/60 L Blood Pressure Location Rt brachial Position Sitting Pulse 54 Pulse Source Pulse Oximeter Pulse Oximetry (%) 100 Oxygen Delivery Method Room Air Intake Visit Reasons: 3m follow up ZIEGLER-Confirmed Intake Note: Patient presents for 3 month follow up She went to PT and she still the same Allergies aspirin [ASPIRIN] Allergy (Intermediate, Verified 06/19/23 11:17) GENERALIZED BODY ACHES, NUMBNESS latex Allergy (Intermediate, Verified 06/19/23 11:17) itchy rash Penicillins [PENICILLINS] Allergy (Intermediate, Verified 06/19/23 11:17) RASH, HIVES mold Allergy (Verified 06/19/23 11:17) Nasal congestion dust mites Allergy (Mild, Uncoded 06/19/23 11:17) Nasal congestion Medication List - Last Reconciled 06/19/23 by NASIMA Elizabeth amitriptyline 5 - 10 mg (0.5 - 1 x 10 mg) PO BEDTIME 30 days levothyroxine (Synthroid) 50 mcg PO DAILY [Magnesium PO BEDTIME PRN] miscellaneous medical supply Wheelchair vitamin B complex 1 cap PO DAILY HPI HPI Comments History of Present Illness Details 67-yr-old female presents for f/u visit, accompanied by her dtr. Pt denies any significant interval medical changes. She did PT, which she found helpful. She feels stronger overall. She denies any recent dizziness. She continues to have the sensation of hearing water running down her head. This occurs daily, but is worse 3 days per week. When worse, she has pressure, stinging pains in the head and chest, cannot think, photophobia, phonophobia, feeling that everything is running inside her. Worsens if stressed or on days she takes her thyroid medication (now taking qod). But it can be worse on the days she does not take the thyroid med. If she bends over, she will have a different tinnitus. She has IBS w/ loose stools. [facility] Medical History (Reviewed 02/14/23 @ 08:45 by Joy Dubois [facility]) Insomnia Anxiety and depression History of COVID-19 Toxic thyroid nodule Palpitations Vitamin D deficiency Multinodular thyroid Thyroid disorder Hospital discharge follow-up Hyperthyroidism Osteoporosis Surgical History H/O endoscopy Hx of thyroidectomy History of tubal ligation History of esophagogastroduodenoscopy (EGD) Hx of colonoscopy Hx of hysterectomy Family History Sister Diabetes HTN (hypertension) Heart problem Family/Other Diabetes Social History Household Members Other:: Daughters take turns being w/ patient Are you a primary medicare contact specialist to a significant other at home: No Do you presently have visiting nurse or other home services: No (Daughters spending a lot of time caring for patient) Alcohol intake: current Alcohol intake frequency: does not drink Comment: Legs weak since Covid Patient Tobacco Use Status: Never used Tobacco Review of Systems Const All systems reviewed & are unremarkable except as noted in HPI and below Physical Exam Vital Signs: Last Vital Signs Pulse 54 06/19/23 11:14 BP 80/60 L 06/19/23 11:14 Pulse Ox 100 06/19/23 11:14 Oxygen Delivery Method Room Air 06/19/23 11:14 BMI result Body Mass Index 20.4 Const General: cooperative and no acute distress HEENT Head: Yes normocephalic Resp Effort & Inspection: normal respiratory effort and able to speak in complete sentences Neuro Other: A&O, responding appropriately Steady gait w/ walker Cognition (Neuro): normal cognition Motor exam (neuro): 5/5 motor strength present throughout Psych Appearance: grossly normal Mental Status: mental status grossly normal Speech and movement: Normal speech and movement present Affect: normal affect Attitude: cooperative Assessment & Plan Assessment & Plan (1) Headache: Comment: ? complex migraine Code(s): R51.9 - Headache, unspecified (2) Dizziness: Code(s): R42 - Dizziness and giddiness (3) Tremor: Code(s): R25.1 - Tremor, unspecified Plan Dizziness improved- will monitor. For headache s/s- discussed that this may be an atypical migraine- pt advised to trial Amitriptyline 5-10mg qhs. Track headaches, water sensation, brain fog, dizziness. Dtr to update me in 4 wks w/ effect. Conisder adjunct w/ acute headache tx in f/u. f/u in 3-4 months or sooner prn. Medications: Refilled amitriptyline for complex migraine 5 - 10 mg (0.5 - 1 x 10 mg) PO BEDTIME 30 tabs 3RF 30 days Coding Level of Care Code Est Pt Level 4 (59620) Diagnoses Headache R51.9 Dizziness R42 Tremor R25.1
[2023-06-19 11:14] VITALS: BP 80/60; PULSE 54; O2SAT 100; BMI 20.4
== END 2023-06-19 12:06 | disposition home or self-care (01) ==
PROVIDERS: PCP Internal Medicine; Visit Provider Nurse Practitioner Family
DX: R51.9 Headache, unspecified (principal); R42 Dizziness and giddiness; R25.1 Tremor, unspecified
CPT/HCPCS: 99214

== ENCOUNTER → 2023-06-19 10:58 | Outpatient (BNVA) | payer OTHER, MEDICAID, SELFPAY | PROVIDERS: PCP Internal Medicine; Visit Provider Nurse Practitioner Family | DX: R42 Dizziness and giddiness (principal); R51.9 Headache, unspecified; R25.1 Tremor, unspecified | CPT/HCPCS: 99212 ==

== ENCOUNTER 2023-10-16 11:18 | Outpatient (AMB) | payer MEDICARE, MEDICAID, SELFPAY ==
--- NOTE | 2023-10-16 11:23 | MHC.OFFVIS ---
Vital Signs 10/16/23 11:25 Height 5 ft Weight 104 lb BMI 20.3 BP 100/70 Blood Pressure Location Rt brachial Position Sitting Intake Visit Reasons: 4M follow up-CONF Intake Note: Patient presents for 4 month follow up Allergies aspirin [ASPIRIN] Allergy (Intermediate, Verified 10/16/23 11:28) GENERALIZED BODY ACHES, NUMBNESS latex Allergy (Intermediate, Verified 10/16/23 11:28) itchy rash Penicillins [PENICILLINS] Allergy (Intermediate, Verified 10/16/23 11:28) RASH, HIVES mold Allergy (Verified 10/16/23 11:28) Nasal congestion dust mites Allergy (Mild, Uncoded 10/16/23 11:28) Nasal congestion Medication List - Last Reconciled 10/16/23 by NASIMA Elizabeth amitriptyline 5 - 10 mg (0.5 - 1 x 10 mg) PO BEDTIME 30 days levothyroxine (Synthroid) 50 mcg PO DAILY [Magnesium PO BEDTIME PRN] miscellaneous medical supply Wheelchair vitamin B complex 1 cap PO DAILY HPI Comments Details: 68-yr-old female presents for f/u visit, accompanied by her dtr. Dtr states pt had recent bone density scan- showed decreased bone density. Pt has been seeing a practitioner from [facility] - who told them that she has a jadiel overgrowth. She has been started on a protocol- taking 3 drinks per day. Dtr feels she is doing better- pt states her stomach and sleep is a bit better. She does have episodes of hearing water, feeling abdominal discomfort a/w head pressure- like her head will split. Can off-balance if she closes her eyes- falls to the slide. She did not start the Amitriptyline- she was not sure why to start. [facility] Medical History Insomnia Anxiety and depression History of COVID-19 Toxic thyroid nodule Palpitations Vitamin D deficiency Multinodular thyroid Thyroid disorder Hospital discharge follow-up Hyperthyroidism Osteoporosis Surgical History H/O endoscopy Hx of thyroidectomy History of tubal ligation History of esophagogastroduodenoscopy (EGD) Hx of colonoscopy Hx of hysterectomy Family History Sister Diabetes HTN (hypertension) Heart problem Family/Other Diabetes Social History Household Members Other:: Daughters take turns being w/ patient Are you a primary hemodialysis patient care specialist to a significant other at home: No Do you presently have visiting nurse or other home services: No (Daughters spending a lot of time caring for patient) Alcohol intake: current Alcohol intake frequency: does not drink Comment: Legs weak since Covid Patient Tobacco Use Status: Never used Tobacco Physical Exam Vital Signs: Last Vital Signs BP 100/70 10/16/23 11:25 BMI result Body Mass Index 20.3 Const General: cooperative and no acute distress Resp Effort & Inspection: normal respiratory effort and able to speak in complete sentences Neuro Other: Alert, oriented. FFM- decreased Foot taps- slow decreased- pt states causes neck and low back pulling sensation Slow to stand, slow gait, short steps, but steady. Cranial nerves: Yes CN's II-XII intact bilaterally Psych Appearance: grossly normal Mental Status: mental status grossly normal Speech and movement: Normal speech and movement present Affect: normal affect Attitude: cooperative Assessment & Plan Assessment & Plan (1) Headache: Comment: ? complex migraine Code(s): R51.9 - Headache, unspecified Category: Medical (2) Cervicalgia: Code(s): M54.2 - Cervicalgia Category: Medical Plan Dizziness improved- will monitor. For headache s/s- discussed that this may be an atypical migraine- pt again advised to trial Amitriptyline 5-10mg qhs. Track headaches, water sensation, brain fog, dizziness. Dtr to update me in 4-8 wks w/ effect. Consider adjunct w/ acute headache tx in f/u. Check c-spine XR f/u in 6 months or sooner prn. Orders: Orders XR cervical spine w flex/ext Today M54.2 - Cervicalgia Medications: Refilled amitriptyline for complex migraine 5 - 10 mg (0.5 - 1 x 10 mg) PO BEDTIME 30 days 30 tabs 3RF Coding Level of Care Code Est Pt Level 4 (35900) Diagnoses Headache R51.9 Cervicalgia M54.2
[2023-10-16 11:25] VITALS: BP 100/70; BMI 20.3
== END 2023-10-16 12:13 | disposition home or self-care (01) ==
PROVIDERS: PCP Internal Medicine; Visit Provider Nurse Practitioner Family
DX: R51.9 Headache, unspecified (principal); M54.2 Cervicalgia
CPT/HCPCS: 99214

== ENCOUNTER → 2023-10-16 11:18 | Outpatient (BNVA) | payer MEDICARE, MEDICAID, SELFPAY | PROVIDERS: PCP Internal Medicine; Visit Provider Nurse Practitioner Family | DX: R51.9 Headache, unspecified (principal); M54.2 Cervicalgia | CPT/HCPCS: 99212 ==

== ENCOUNTER 2024-05-01 11:36 | Outpatient (AMB) | payer MEDICARE, MEDICAID, SELFPAY ==
--- NOTE | 2024-05-01 11:54 | A.OFFVIS_ITS ---
Vital Signs 05/01/24 11:56 Height 5 ft Weight 104 lb 2 oz BMI 20.3 BP 110/70 Blood Pressure Location Rt brachial Position Sitting Pulse 56 Pulse Source Pulse Oximeter Pulse Oximetry (%) 98 Oxygen Delivery Method Room Air Intake Visit Reasons: 6 Month F/U Bill Peddler Required: Yes Bill Peddler Language: Windows 7 Deployment Lead Services: Bill Peddler Offered & Declined ([facility] freelance interpreter/translator services refused.) Bill Peddler Name: Adriana-Daughter Accompanied by: Daughter Allergies aspirin [ASPIRIN] Allergy (Intermediate, Verified 05/01/24 11:56) GENERALIZED BODY ACHES, NUMBNESS latex Allergy (Intermediate, Verified 05/01/24 11:56) itchy rash Penicillins [PENICILLINS] Allergy (Intermediate, Verified 05/01/24 11:56) RASH, HIVES mold Allergy (Verified 05/01/24 11:56) Nasal congestion dust mites Allergy (Mild, Uncoded 10/16/23 11:28) Nasal congestion Medication List - Last Reconciled 05/01/24 by NASIMA Elizabeth amitriptyline 5 - 10 mg PO BEDTIME PRN levothyroxine (Synthroid) 50 mcg PO DAILY miscellaneous medical supply Wheelchair HPI Comments Details: 68-yr-old female presents for f/u visit of probable migraine, accompanied by her dtr. Pt had [facility] ER eval for flare-up of GI s/s- was tx'd w/ IVF, anti-emetic tx. Pt is f/b GI. Dtr wonders what the Dx is for pt's ongoing GI s/s- wonders if there is a known Dx and they have just not been told. Dtr and pt state they have discussed trying to adjust pt's thyroid supplement regimen, as pt often feels better when she takes 2 tabs on Monday then on the other 6 days where she only takes 1 tab a day. Patient does not have any crystal clear days. Per daughter, patient is currently euthyroid, thus endocrinology has not wanted to adjust her regimen. She did not start the Amitriptyline- pt today states she did not start it as she knows it will not do anything. She does still have episodes of hearing water, feeling abdominal discomfort a/w head pressure- like her head will split, off-balance sensation- falls to one side if she closes her eyes, nausea. This starts in the morning, but is worse in the evening. PFSH Medical History Insomnia Anxiety and depression History of COVID-19 Toxic thyroid nodule Palpitations Vitamin D deficiency Multinodular thyroid Thyroid disorder Hospital discharge follow-up Hyperthyroidism Osteoporosis Surgical History H/O endoscopy Hx of thyroidectomy History of tubal ligation History of esophagogastroduodenoscopy (EGD) Hx of colonoscopy Hx of hysterectomy Family History Sister Diabetes HTN (hypertension) Heart problem Family/Other Diabetes Social History Household Members Other:: Daughters take turns being w/ patient Are you a primary palliative care specialist to a significant other at home: No Do you presently have visiting nurse or other home services: No (Daughters spending a lot of time caring for patient) Alcohol intake: current Alcohol intake frequency: does not drink Comment: Legs weak since Covid Patient Tobacco Use Status: Never used Tobacco Physical Exam Vital Signs: Last Vital Signs Pulse 56 05/01/24 11:56 BP 110/70 05/01/24 11:56 Pulse Ox 98 05/01/24 11:56 Oxygen Delivery Method Room Air 05/01/24 11:56 BMI result Body Mass Index 20.3 Const General: cooperative and no acute distress Resp Effort & Inspection: normal respiratory effort and able to speak in complete sentences Neuro Other: Alert, oriented. Slow to stand, slow gait, short steps, but steady. General: moves all extremities Cranial nerves: Yes CN's II-XII intact bilaterally Psych Appearance: grossly normal Mental Status: mental status grossly normal Speech and movement: Normal speech and movement present Affect: normal affect Attitude: cooperative Assessment & Plan Assessment & Plan (1) Headache: Comment: ? complex migraine Code(s): R51.9 - Headache, unspecified Category: Medical (2) Cervicalgia: Code(s): M54.2 - Cervicalgia Category: Medical Plan Dizziness improved- will monitor. For headache s/s- discussed that this may be an atypical migraine- Amitriptyline 5-10mg qhs trial would help in identifying the diagnosis of her signs and symptoms. Patient will consider, daughter asks us to refill it. Trial Sumatriptan 100mg tab, 1/2 - 1 tab (50-100mg) at onset of headache, may repeat in 2 hours. Max of 2 tabs (200mg) per 24 hours. May adjunct with OTC Tylenol 650-1000mg q 4-6 hours prn. Potential adverse effects of triptans, inclu de but are not limited to nausea, fatigue, chest tightness/tingling (usually passes within a few minutes), medication overuse headaches. Track headaches, water sensation, brain fog, dizziness. Again check c-spine XR f/u in 6 months or sooner prn. Medications: New sumatriptan succinate 50 - 100 mg orally at onset of headache, may repeat in 2 hrs PRN; max 2 tabs per day or 4 tabs/week (may take with Tylenol) 12 tabs 6RF migraine headache 30 days Changed From amitriptyline for complex migraine 5 - 10 mg (0.5 - 1 x 10 mg) PO BEDTIME 30 days 30 tabs 3RF To amitriptyline for complex migraine 5 - 10 mg PO BEDTIME PRN Coding Level of Care Code Est Pt Level 4 (69038) Diagnoses Headache R51.9 Cervicalgia M54.2
[2024-05-01 11:56] VITALS: BP 110/70; PULSE 56; O2SAT 98; BMI 20.3
== END 2024-05-01 12:40 | disposition home or self-care (01) ==
PROVIDERS: PCP Internal Medicine; Visit Provider Nurse Practitioner Family
DX: R51.9 Headache, unspecified (principal); M54.2 Cervicalgia
CPT/HCPCS: 99214

== ENCOUNTER → 2024-05-01 11:36 | Outpatient (BNVA) | payer MEDICARE, MEDICAID, SELFPAY | PROVIDERS: PCP Internal Medicine; Visit Provider Nurse Practitioner Family | DX: R51.9 Headache, unspecified (principal); M54.2 Cervicalgia | CPT/HCPCS: 99212 ==

== ENCOUNTER 2024-10-30 08:59 | Outpatient (AMB) | payer MEDICARE, MEDICAID, SELFPAY ==
--- NOTE | 2024-10-30 09:03 | MHC.OFFVIS ---
Vital Signs 10/30/24 09:08 Height 5 ft Weight 111 lb BMI 21.7 BP 110/60 Blood Pressure Location Lt brachial Position Sitting Pulse 65 Pulse Source Pulse Oximeter Pulse Oximetry (%) 97 Oxygen Delivery Method Room Air Intake Visit Reasons: Follow Up 6mo Manager Product Support Required: No Manager Product Support Name: Daughter Translating Allergies aspirin [ASPIRIN] Allergy (Intermediate, Verified 10/30/24 09:09) GENERALIZED BODY ACHES, NUMBNESS latex Allergy (Intermediate, Verified 10/30/24 09:09) itchy rash Penicillins [PENICILLINS] Allergy (Intermediate, Verified 10/30/24 09:09) RASH, HIVES mold Allergy (Verified 10/30/24 09:09) Nasal congestion dust mites Allergy (Mild, Uncoded 10/16/23 11:28) Nasal congestion Medication List - Last Reconciled 10/30/24 by NASIMA Elizabeth levothyroxine (Synthroid) 50 mcg PO DAILY miscellaneous medical supply Wheelchair sumatriptan succinate 50 - 100 mg orally at onset of headache, may repeat in 2 hrs PRN; max 2 tabs per day or 4 tabs/week (may take with Tylenol) 30 days HPI Comments Details: 69-yr-old female presents for f/u visit of probable migraine, accompanied by her dtr. Pt's dtr reports pt has had a 2nd opinion regarding her GI s/s, and was advised to start a new medication taken at bedtime (unsure of the name). Pt did start this, a couple of weeks ago, the patient is hesitant to take this as she feels that it is causing episodes of the fluid and noise moving through her head and then her body, and generally feeling worse, and then having drainage from her nose Patient's daughter is asking if patient can have testing to assess her tolerance to medications. As any time she takes any medication for any condition, within 30 minutes, she has the exact same reaction as above. Pt's dtr states that pt is now feeling like the fluid/noise in her head is moving through her entire body, as a warm liquid which lasts 30 minutes, and is f/b thick clear drainage from her nose, which is followed by worsening body pain. She is having dizziness again. Her baseline daily episodes include hearing water, feeling abdominal discomfort a/w head pressure- like her head will split, off-balance sensation- falls to one side if she closes her eyes, nausea. 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 Per daughter, patient is currently euthyroid, thus endocrinology has not wanted to adjust her regimen. Does not seem that patient did try the amitriptyline or sumatriptan. Patient states that she does not know how she would take an as-needed medication, as she has a headache and all of the associated symptoms all the time. Though notes that she does feel better in the morning and the symptoms worsen as the day progresses into the evening. She has not had cervical x-ray as requested. [facility] Medical History Insomnia Anxiety and depression History of COVID-19 Toxic thyroid nodule Palpitations Vitamin D deficiency Multinodular thyroid Thyroid disorder Hospital discharge follow-up Hyperthyroidism Osteoporosis Surgical History H/O endoscopy Hx of thyroidectomy History of tubal ligation History of esophagogastroduodenoscopy (EGD) Hx of colonoscopy Hx of hysterectomy Family History Sister Diabetes HTN (hypertension) Heart problem Family/Other Diabetes Social History Household Members Other:: Daughters take turns being w/ patient Are you a primary home care aide to a significant other at home: No Do you presently have visiting nurse or other home services: No (Daughters spending a lot of time caring for patient) Alcohol intake: current Alcohol intake frequency: does not drink Comment: Legs weak since Covid Patient Tobacco Use Status: Never used Tobacco Physical Exam Vital Signs: Last Vital Signs Pulse 65 10/30/24 09:08 BP 110/60 10/30/24 09:08 Pulse Ox 97 10/30/24 09:08 Oxygen Delivery Method Room Air 10/30/24 09:08 BMI result Body Mass Index 21.7 Const General: cooperative and no acute distress Resp Effort & Inspection: normal respiratory effort and able to speak in complete sentences Neuro Other: Alert, oriented. Slow to stand, slow gait, short steps, but steady. General: moves all extremities Cranial nerves: Yes CN's II-XII intact bilaterally Psych Appearance: grossly normal Mental Status: mental status grossly normal Speech and movement: Normal speech and movement present Affect: normal affect Attitude: cooperative Assessment & Plan Assessment & Plan (1) Headache: Comment: ? complex migraine Code(s): R51.9 - Headache, unspecified Category: Medical (2) Cervicalgia: Code(s): M54.2 - Cervicalgia Category: Medical Plan For headache and dizziness: Discussed again that her symptoms are very suggestive of chronic migraine. Reviewed that there is not a specific diagnostic test for chronic migraine, however trying certain medications, may help to not only alleviate her symptoms, but clarify her diagnosis. Information shared on nonpharmacological migraine/headache treatments. Information also shared on psychotropic medication genetic testing, for patient/daughter to review- discuss that this does not test for all medications but maybe a consideration, as patient has not tolerated many medications. However, did discuss that as patient has the exact same reaction to different medications/medication classes, likely her medication intolerance is not likely due to a genetic medication metabolism process dysfunction. Start riboflavin 400 mg daily in the morning Start magnesium 400 mg daily at bedtime Hold Amitriptyline 5-10mg qhs trial for now- patient is not currently open to trying this. However, I have encouraged patient to trial even a few doses of sumatriptan, to assess if any of her symptoms are triptan responsive. Sumatriptan 100mg tab, 1/2 - 1 tab (50-100mg) at onset of headache, may repeat in 2 hours. Max of 2 tabs (200mg) per 24 hours. May adjunct with OTC Tylenol 650-1000mg q 4-6 hours prn. Potential adverse effects of triptans, include but are not limited to nausea, fatigue, chest tightness/tingling (usually passes within a few minutes), medication overuse headaches. Track headaches, water sensation, brain fog, dizziness. Again check c-spine XR Written instructions given to patient and daughter f/u in 6 months or sooner prn. Orders: Orders XR cervical spine w flex/ext 10/30/24 M54.2 - Cervicalgia Medications: New magnesium oxide may hold for loose stools 400 mg PO BEDTIME 30 days 30 tabs 6RF riboflavin (vitamin B2) 400 mg PO DAILY 30 days 30 tabs 6RF Refilled sumatriptan succinate (0.5 - 1 x 100 mg) 50 - 100 mg orally at onset of headache, may repeat in 2 hrs PRN; max 2 tabs per day or 4 tabs/week (may take with Tylenol) 30 days 12 tabs 6RF migraine headache Coding Level of Care Code Est Pt Level 4 (78866) Diagnoses Headache R51.9 Cervicalgia M54.2
[2024-10-30 09:08] VITALS: BP 110/60; PULSE 65; O2SAT 97; BMI 21.7
--- OUTSIDE RECORDS SUMMARY | 2024-10-30 09:25 | XMS_ITS | Clinical Summary ---
Author Organization [place] [address] [address] [facility] Building Address [address] [place] [address] Phone Care Team Providers Care Social Service Liaison Name Role Phone Barbie Mcclain MD Primary Care Prov ider Allergies Active Allergy Reactions Criticality Noted Date Comments Acetaminophen 10/14/2021 Aspirin Swelling 09/16/2020 Buprenorphine 10/29/2021 Diphenhydramine Fatigue 12/02/2020 Side-effects of excessive drowsiness Latex Rash,Unknown 09/16/2020 Levothyroxine Pain 08/30/2021 Worsening tremor and increased joint pain Penicillins Swelling 09/16/2020 Swelling and rash Sertraline Disorientated 04/14/2021 zoned out Medications levothyroxine (SYNTHROID, LEVOTHROID) 50 mcg tablet 1 tablet orally 6 days/week, 2 tablets on 7th day 11/14/2022 Active ondansetron (ZOFRAN) 4 mg tablet Take 1 tablet (4 mg total) by mouth every 8 (eight) hours if needed for nausea or vomiting. Active amitriptyline (ELAVIL) 10 mg tablet Take 0.5 tablets (5 mg total) by mouth at bedtime. 11/09/2023 Active loperamide (IMODIUM) 2 mg capsule Take 1 Capsule by mouth 4 times daily as needed for Diarrhea. Take 30 mins before eating 11/09/2023 Active Active Problems Problem Noted Date Diagnosed Date Moderate episode of recurren t major depressive disorder (CMS/HCC V24, CMS/HCC V28) 07/12/2024 Assessment & Plan (07/12/2024 3:27 PM EST): Orders: Magnesium; Future Pulmonary nodules 12/02/2022 Irritable bowel syndrome with diarrhea Assessment & Plan (07/12/2024 3:27 PM EST): Orders: Magnesium; Future Fibromyalgia 04/11/2022 Overview (08/02/2023): C Rheumatology 03/09/2022, [place] Gastroparesis 01/12/2022 GERD (gastroesophageal reflux disease) 2 Insomnia 10/29/2021 History of COVID-19 10/29/2021 Disturbance of skin sensation 08/30/2021 Overview (08/02/2023): Sensation of something flowing on her scalp and pressure around head , seen with neurology Iron deficiency 06/29/2021 Assessment & Plan (07/12/2024 3:27 PM EST): Orders: CBC and differential; Future Ferritin; Future Vitamin B12; Future Iron and TIBC; Future Folate; Future Vitamin D deficiency 06/29/2021 Assessment & Plan (07/12/2024 3:27 PM EST): Orders: Vitamin D 25 hydroxy; Future Osteoporosis 06/28/2021 Assessment & Plan (07/12/2024 3:27 PM EST): S/P thyroidectomy 05/12/2021 Assessment & Plan (07/12/2024 3:27 PM EST): Chronic constipation 05/12/2021 Chronic nonintractable headache 05/12/2021 Assessment & Plan (07/12/2024 3:27 PM EST): Tinnitus of both ears 05/12/2021 Intermittent palpitations 10/05/2020 Anxiety and depression 10/05/2020 Hyperthyroidism 09/16/2020 Overview (08/02/2023): On methimazole. Following with [facility] endocrinology ( Dr. Elma Bah) Assessment & Plan (07/12/2024 3:27 PM EST): Encounters Date Type Department Care Team Description 08/12/2024 Telephone Adult Medicine [address] [id number] Barbie Mcclain MD from Last 3 Months Immunizations Name Administration Dates Next Due TD, Adsorbed, Preservative Free 11/08/2014,07/19 Td Tetanus diptheria (Tdvax) 7yo and older 11/08,07/19/1996 Tdap Tetanus diptheria acell ular pertussis (Boostrix; Adacel) 7yo and older 09/08/2016 Surgical History Surgery Date Site/Laterality Comments HYSTERECTOMY PROCEDURE: HISTORICAL HYSTERECTOMY; COMMENT: Ovarian concervation CATARACT EXTRACTION Bilateral PROCEDURE: HISTORICAL CATARACT REMOVAL OTHER SURGICAL HISTORY 02/2021 PROCEDURE: HISTORICAL SUBTOTAL THYROIDECTOMY TUBAL LIGATION PROCEDURE: HISTORICAL TUBAL LIGATION COLONOSCOPY 06/01/2022 PROCEDURE: HISTORICAL COLONOSCOPY; COMMENT: 8 mm TA x 2. random biopsy for micro colitis normal ESOPHAGOGASTRODUODENOSCOPY 06/01/2022 PROCEDURE: NM EGD TRANSORAL BIOPSY SINGLE/MULTIPLE; COMMENT: normal, biopsy negative for celiac Medical History Medical History Date Comments Hyperthyroidism DX:Hyperthyroidi sm; COMMENT: followed by Dr. Bah, endocrinology at [facility], patient noncompliant on beta-blockers Intermittent palpitations DX:Int ermittent palpitations Toxic thyroid nodule DX:Toxic th yroid nodule; COMMENT: Referred to [facility] endocrinology as per daughter request, per Dr. Kamaljit Briscoe, data operations director at [facility], recommended total thyroidectomy Vestibular neuritis DX:Vestibula r neuritis; COMMENT: Dr. Frederick diagnosed on 12/23/2020 GERD (gastroesophageal reflu x disease) 10/29/2021 DX:GERD (gastroesophageal re flux disease) Insomnia 10/29/2021 DX:Insomnia History of COVID-19 10/29/2021 DX:History o f COVID-19; COMMENT: again 07/28/2023 Anxiety and depression 10/05/2020 DX:Anxiet y and depression Chronic constipation 05/12/2021 DX:Chronic constipation Chronic nonintractable headache 05/12/2021 DX:Chronic nonintractable headache Disturbance of skin sensation 08/30/2021 DX :Disturbance of skin sensation; COMMENT: Sensation of something flowing on her scalp and pressure around head , seen with neurology Iron deficiency 06/29/2021 DX:Iron deficien cy Osteoporosis 06/28/2021 DX:Osteoporosis S/P thyroidectomy 05/12/2021 DX:S/P thyroid ectomy Tinnitus of both ears 05/12/2021 DX:Tinnitu s of both ears Vitamin D deficiency 06/29/2021 DX:Vitamin D deficiency Fibromyalgia 04/11/2022 DX:Fibromyalgia; COMMENT: [facility] Rheumatology 03/09/2022, [place] Irritable bowel syndrome DX:Irri table bowel syndrome Migraine headache DX:Migraine he adache Family History Medical History Relation Name Comments Breast cancer Other 1 Cousin Diabetes Other 2 neice Hypertension Sister x4 Relation Name Status Comments Brother Other 1 Cousin Other 2 neice Alive Sister x4 Alive Social History Tobacco Use Types Packs/Day Years Used Date Smoking Tobacco: Never Smokeless Tobacco: Never Tobacco Cessation:Counseling Given: Not Answered Alcohol Use Standard Drinks/Week Comments Never 0 (1 standard drink = 0.6 oz pur e alcohol) Comments Unknown Sex and Gender Information Value Date Recorded Sex Assigned at Not on file Legal Sex Female 5:36 AM EST Gender Identity Not on file Sexual Orientation Not on file Obstetrics History Last Filed Vital Signs Vital Sign Reading Time Taken Comments Blood Pressure 104/52 07/12/2024 8:08 AM EST Pulse 62 07/12/2024 8:08 AM EST Temperature 36.5 ??C (97.7 ??F) 07/12/2024 8:08 AM ES T Respiratory Rate 15 07/12/2024 8:08 AM EST Oxygen Saturation - - Inhaled Oxygen Concentration - - Weight 51.3 kg (113 lb 3.2 oz) 07/12/2024 8:08 A M EST Height 152.4 cm (5') 07/12/2024 8:08 AM EST Body Mass Index 22.11 07/12/2024 8:08 AM EST Plan of Treatment Upcoming Encounters Date Type Department Care Team (Late st Contact Info) Description 01/09/2025 8:30 AM EDT Office Visit Adult Medicine [address] [phone] Barbie Mcclain MD [address] [place] [address] Health Maintenance Due Date Last Done Comments Pneumococcal Vaccine: 50+ Years (1 of 1 - PCV) 2004 Zoster Vaccines (1 of 2) 2004 Social Influencers of Health Screening 05/14/2022 COVID-19 Vaccine ( - 2023- season) 2024 Influenza Vaccine (Season Ended) 2025 Breast Cancer Screening 06/28/2025 06/28/19, 05/17/2022, 05/03/2021 Depression Screening 07/12/2025 07/12/2024, 11/15/2023, 07/03/2023 Falls Risk Assessment 07/12/2025 07/12/2024 , 07/03/2023, 07/03/2023 Medicare Annual Wellness Visit 07/12/2025 07/12/2024 Cholesterol Screening (Lipid Panel) 06/28/2026 06/28/2021 DTaP,Tdap,and Td Vaccines (5 - Td or Tdap) 09/08/2026 09/08/2016, 11/08/2014, 11/08/2014, Additional history exists Colorectal Cancer Screening: Colonoscopy 06/01/2027 06/01/2022, 06/01/2022 RSV Immunization Adult Patients (1 - 1-dose 75+ series) 2029 Osteoporosis Screening (Bone Density Screening) 08/23/2033 08/24/2023, 06/24/2021 Hepatitis C Screening Completed 06/28/2021 HIB Vaccines Aged Out No longer eligi ble based on patient's age to complete this topic HPV Vaccines Aged Out No longer eligi ble based on patient's age to complete this topic Hepatitis A Vaccines Aged Out No long er eligible based on patient's age to complete this topic Hepatitis B Vaccines Aged Out No long er eligible based on patient's age to complete this topic IPV Vaccines Aged Out No longer eligi ble based on patient's age to complete this topic MMR Vaccines Aged Out No longer eligi ble based on patient's age to complete this topic Meningococcal ACWY Vaccine Aged Out N o longer eligible based on patient's age to complete this topic Meningococcal B Vaccine Aged Out No l onger eligible based on patient's age to complete this topic RSV Immunization Patients Under 20 months Aged Out No longer eligible based on patient's age to complete this topic Varicella Vaccines Aged Out No longer eligible based on patient's age to complete this topic Procedures Procedure Name Priority Date/Time Associated Diagnosis Comments DEPRESSION SCREENING Routine 11/15/2023 DXA BONE DENSITY STUDY 1+ SITS AXIAL SKEL Routine 08/24/2023 9:41 AM EDT Encounter for general adult medical examination with abnormal findings FALLS RISK ASSESSMENT Routine 07/03/2023 SCREENING MAMMOGRAPHY BI 2-VIEW BREAST INC CAD Routine 06/28/2023 11:24 AM EST Encounter for gynecological examination (general) (routine) without abnormal findings Encounter for other screening for malignant neoplasm of breast COLONOSCOPY Routine 06/01/2022 HEPATITIS C SCREENING Routine 06/28/2021 LIPID PANEL Routine 06/28/2021 from Last 3 Months or Most Recently Relevant to Health Maintenance Results * Depression Screening (11/15/2023) Depression Screening Abstracted us Historical Provider MD HEALTH MAINTENANCE Final Result * DXA BONE DENSITY STUDY 1+ SITS AXIAL SKEL (08/24/2023 9:41 AM EDT) Anatomical Region Laterality Modality Bone Densitometr y 07/03/2023 9:02 AM EST Narrative 08/24/2023 7:36 PM EDT STUDY: ??DUAL ENERGY X-RAY ABSORPTIOMETRY / DXA REASON FOR EXAM: ?? Female, 68 years old ??osteoporosis TECHNIQUE: ?? Bone Mineral Density (BMD) measurements of the lumbar spine and left hip were obtained using [email or web address] W ([id number]/N [id number]). ?? COMPARISON: None ?? FINDINGS: L1-L4 BMD: 0.638 g/cm2 L1-L4 T score: -3.7. ??This corresponds to osteoporosis. Left femoral neck BMD: 0.497 g/cm2 Left femoral neck T score: -3.2. ??This corresponds to osteoporosis. Left total hip BMD: 0.585 g/cm2 Left total hip T score: -2.9. ??This corresponds to osteoporosis. IMPRESSION: IMPRESSION: Osteoporosis Reference Information: The T-score is the number of standard deviations above or below the standard which is normal for young adults at their peak bone mineral density. The World Health Organization (WHO) interprets the T-scores as follows: At or above ??-1 SD ?Normal bone density Between -1 and -2.5 SD ??Osteopenia At or below -2.5 SD ?Osteoporosis Procedure Note Luis Fernando Ansari MD - 01/22/2024 STUDY: DUAL ENERGY X-RAY ABSORPTIOMETRY / DXA REASON FOR EXAM: Female, 68 years old osteoporosis TECHNIQUE: Bone Mineral Density (BMD) measurements of the lumbar spineand left hip were obtained using [email or web address] W (S/N [id number]). COMPARISON: None FINDINGS: L1-L4 BMD: 0.638 g/cm2 L1-L4 T score: -3.7. This corresponds to osteoporosis. Left femoral neck BMD: 0.497 g/cm2 Left femoral neck T score: -3.2. This corresponds to osteoporosis. Left total hip BMD: 0.585 g/cm2 Left total hip T score: -2.9. This corresponds to osteoporosis. IMPRESSION: IMPRESSION: Osteoporosis Reference Information: The T-score is the number of standard deviations above or below thestandard which is normal for young adults at their peak bone mineral density. The World HealthOrganization (WHO) interprets the T-scores as follows: At or above -1 SD Normal bone density Between -1 and -2.5 SD Osteopenia At or below -2.5 SD Osteoporosis Barbie Mcclain MD IMG DXA PROCEDURES Final Result * Falls Risk Assessment (07/03/2023) Pathologist [facility] Falls Risk Assessment Abstracted us Historical Provider HEALTH MAINTENANCE Final Result * SCREENING MAMMOGRAPHY BI 2-VIEW BREAST INC CAD (06/28/2023 11:24 AM EST) Anatomical Region Laterality Modality Radiographic Gloria ging 05/17/2022 2:4 0 PM EST Narrative 06/28/2023 6:03 PM EST This is a summary report. The complete report is available in the patient's medical record. If you cannot access the medical record, please contact the sending organization for a detailed fax or copy. BILATERAL 3D DIGITAL SCREENING MAMMOGRAM History: Routine screening. ??No current breast complaints. ??Family history of breast cancer Comparison: Multiple priors dating back to 05/03/2021 Technique: Bilateral full-field digital 3D mammography was performed using standard CC and MLO projections CAD was used to evaluate this mammogram. Findings: Density: ?? The breasts are heterogeneously dense which may obscure small masses-C RIGHT: No suspicious masses, groups of microcalcification or areas of architectural distortion identified. Stable typically benign parenchymal asymmetries LEFT: No suspicious masses, groups of microcalcifications or areas of architectural distortion identified. Stable typically benign parenchymal asymmetries IMPRESSION: : 1. ??No mammographic evidence of malignancy. BI-RADS Category 2 benign findings Recommendation: Routine annual screening mammography is recommended Procedure Note Lucita Tucker MD - 01/22/2024 This is a summary report. The complete report is available in thepatient's medical record. If you cannot access the medical record, pleasecontact the sending organization for a detailed fax or copy. BILATERAL 3D DIGITAL SCREENING MAMMOGRAM History: Routine screening. No current breast complaints. Family historyof breast cancer Comparison: Multiple priors dating back to 05/03/2021 Technique: Bilateral full-field digital 3D mammography was performed usingstandard CC and MLO projections CAD was used to evaluate this mammogram. Findings: Density: The breasts are heterogeneously dense which may obscure smallmasses-C RIGHT: No suspicious masses, groups of microcalcification or areas ofarchitectural distortion identified. Stable typically benign parenchymalasymmetries LEFT: No suspicious masses, groups of microcalcifications or areas ofarchitectural distortion identified. Stable typically benign parenchymalasymmetries IMPRESSION: : 1. No mammographic evidence of malignancy. BI-RADS Category 2 benign findings Recommendation: Routine annual screening mammography is recommended Nila Valdivia CNSirena IMG XR PROCEDURES Final Resul t * Colonoscopy (06/01/2022) Pathologist [facility] Colonoscopy no interpretation , abstracted Anatomical Region Laterality Modality Other Historical Provider HEALTH MAINTENANCE Final Result * Hepatitis C Screening (06/28/2021) [facility] Hepatitis C Screening Abstracted [facility] Provider HEALTH MAINTENANCE Final Result * (ABNORMAL) Lipid panel (06/28/2021) [facility] LDL/HDL Ratio 2 0 - 4 Triglycerides 109 0 - 150 mg/dL Cholesterol 203(A) 0 - 200 mg/dL HDL 89 >=40 mg/dL LDL Cholesterol 93 0 - 100 mg/dL Blood Venous blood specimen / Unknown Historical Provider LAB BLOOD ORDERABLES Adri l Result from Last 3 Months or Most Recently Relevant to Health Maintenance Insurance [place] Care Teams Social Service Liaison Relationship Specialty Start Date End Date Barbie Mcclain MD [address] [place] [id number] PCP - General Internal Medicine 05/15/24
== END 2024-10-30 10:20 | disposition home or self-care (01) ==
LOC: HO.HSMS 08:59
PROVIDERS: PCP Internal Medicine; Visit Provider Nurse Practitioner Family
DX: R51.9 Headache, unspecified (principal); M54.2 Cervicalgia
CPT/HCPCS: 99214

== ENCOUNTER → 2024-10-30 08:59 | Outpatient (BNVA) | payer MEDICARE, MEDICAID, SELFPAY | PROVIDERS: PCP Internal Medicine; Visit Provider Nurse Practitioner Family | DX: M54.2 Cervicalgia (principal); R51.9 Headache, unspecified | CPT/HCPCS: 99212 ==

== ENCOUNTER 2025-05-14 08:35 | Outpatient (AMB) | payer MEDICARE, MEDICAID, SELFPAY ==
--- NOTE | 2025-05-14 08:36 | A.OFFVIS_ITS ---
Vital Signs 05/14/25 08:37 Height 5 ft Weight 113 lb BMI 22.1 BP 124/60 Blood Pressure Location Rt brachial Position Sitting Pulse 61 Pulse Source Pulse Oximeter Pulse Oximetry (%) 98 Oxygen Delivery Method Room Air Intake Visit Reasons: Follow Up 6mo Multimedia Coordinator Required: No Multimedia Coordinator Name: Daughter Translating Accompanied by: Daughter Allergies aspirin (ASPIRIN) Allergy (Intermediate, Verified 05/14/25 08:41) GENERALIZED BODY ACHES, NUMBNESS latex Allergy (Intermediate, Verified 05/14/25 08:41) itchy rash Penicillins (PENICILLINS) Allergy (Intermediate, Verified 05/14/25 08:41) RASH, HIVES mold Allergy (Verified 05/14/25 08:41) Nasal congestion dust mites Allergy (Mild, Uncoded 05/14/25 08:41) Nasal congestion Medication List - Last Reconciled 05/14/25 by NASIMA Elizabeth levothyroxine (Synthroid) 50 mcg PO DAILY magnesium oxide 400 mg PO BEDTIME 30 days miscellaneous medical supply Wheelchair riboflavin (vitamin B2) 400 mg PO DAILY 30 days sumatriptan succinate 50 - 100 mg orally at onset of headache, may repeat in 2 hrs PRN; max 2 tabs per day or 4 tabs/week (may take with Tylenol) 30 days HPI Comments Details: 69-yr-old female presents for f/u visit of probable migraine, accompanied by her dtr. Pt reports that she started Amitriptyline 5mg daily at 8pm, which she overall tolertaed well- other than some mild confusion upon waking up at 4am. She did not notice any difference in her daily episodes: * Her baseline daily episodes include hearing water, feeling abdominal discomfort a/w head pressure- like her head will split, off-balance sensation- falls to one side if she closes her eyes, nausea. She stopped the Amitriptyline, as she was started on ? flagyl to help her GI s/s- which has helped some. She has not yet tried the sumatriptan, B2, Mag. She also has episodes of low back pain- that is burning down bilateral back into bilateral groin and perineum. This occurs 3 times a week. This is not a/w bowel movement or viding. [facility] Medical History Insomnia Anxiety and depression History of COVID-19 Toxic thyroid nodule Palpitations Vitamin D deficiency Multinodular thyroid Thyroid disorder Hospital discharge follow-up Hyperthyroidism Osteoporosis Surgical History H/O endoscopy Hx of thyroidectomy History of tubal ligation History of esophagogastroduodenoscopy (EGD) Hx of colonoscopy Hx of hysterectomy Family History Sister Diabetes HTN (hypertension) Heart problem Family/Other Diabetes Social History Household Members Other:: Daughters take turns being w/ patient Are you a primary hospice care sales consultant to a significant other at home: No Do you presently have visiting nurse or other home services: No (Daughters spending a lot of time caring for patient) Alcohol intake: current Alcohol intake frequency: does not drink Comment: Legs weak since Covid Patient Tobacco Use Status: Never used Tobacco Physical Exam Vital Signs: Last Vital Signs Pulse 61 05/14/25 08:37 BP 124/60 05/14/25 08:37 Pulse Ox 98 05/14/25 08:37 Oxygen Delivery Method Room Air 05/14/25 08:37 BMI result Body Mass Index 22.1 Const General: cooperative and no acute distress Resp Effort & Inspection: normal respiratory effort and able to speak in complete sentences Neuro Other: Alert, oriented. Slow to stand, slow gait, short steps, but steady. General: moves all extremities Cranial nerves: Yes CN's II-XII intact bilaterally Psych Appearance: grossly normal Mental Status: mental status grossly normal Speech and movement: Normal speech and movement present Affect: normal affect Attitude: cooperative Assessment & Plan Assessment & Plan (1) Headache: Comment: ? complex migraine Code(s): R51.9 - Headache, unspecified Category: Medical Qualifiers: Headache type: unspecified Headache chronicity pattern: chronic headache Intractability: not intractable Qualified Code(s): R51.9 - Headache, unspecified; G89.29 - Other chronic pain (2) Cervicalgia: Code(s): M54.2 - Cervicalgia Category: Medical (3) Dorsalgia: Code(s): M54.9 - Dorsalgia, unspecified Category: Medical Plan For headache and dizziness: Discussed again that her symptoms are very suggestive of chronic migraine. Reviewed that there is not a specific diagnostic test for chronic migraine, however trying certain medications, may help to not only alleviate her symptoms, but clarify her diagnosis. Information shared on nonpharmacological migraine/headache treatments. Start riboflavin 400 mg daily in the morning Start magnesium 400 mg daily at bedtime Resume Amitriptyline- 5mg daily at 7pm x's 2 weeks, then increase to 10mg daily at 7pm. I have again encouraged patient to trial even a few doses of sumatriptan, to assess if any of her symptoms are triptan responsive. * Sumatriptan 100mg tab, 1/2 - 1 tab (50-100mg) at onset of headache, may repeat in 2 hours. Max of 2 tabs (200mg) per 24 hours. May adjunct with OTC Tylenol 650-1000mg q 4-6 hours prn. Potential adverse effects of triptans, include but are not limited to nausea, fatigue, chest tightness/tingling (usually passes within a few minutes), medication overuse headaches. Track headaches, water sensation, brain fog, dizziness. Again check c-spine XR Also check l-spine XR Written instructions given to patient and daughter f/u in 6 months or sooner prn. Orders: Orders XR lumbar spine 2-3V Today M54.9 - Dorsalgia, unspecified Medications: New amitriptyline 10 mg PO BEDTIME 30 tabs 6RF 30 days Refilled riboflavin (vitamin B2) 400 mg PO DAILY 30 tabs 6RF 30 days magnesium oxide may hold for loose stools 400 mg PO BEDTIME 30 tabs 6RF 30 days sumatriptan succinate (0.5 - 1 x 100 mg) 50 - 100 mg orally at onset of headache, may repeat in 2 hrs PRN; max 2 tabs per day or 4 tabs/week (may take with Tylenol) 30 days 12 tabs 6RF migraine headache sumatriptan succinate 50 - 100 mg orally at onset of headache, may repeat in 2 hrs PRN; max 2 tabs per day or 4 tabs/week (may take with Tylenol) 12 tabs 6RF migraine headache 30 days Coding Level of Care Code Est Pt Level 4 (13816) Diagnoses Chronic nonintractable headache, unspecified headache type R51.9; G89.29 Headache type: unspecified Headache chronicity pattern: chronic headache Intractability: not intractable Cervicalgia M54.2 Dorsalgia M54.9
[2025-05-14 08:37] VITALS: BP 124/60; PULSE 61; O2SAT 98; BMI 22.1
== END 2025-05-14 09:48 | disposition home or self-care (01) ==
LOC: HO.HSMS 08:36
PROVIDERS: PCP Internal Medicine; Visit Provider Nurse Practitioner Family
DX: R51.9 Headache, unspecified (principal); G89.29 Other chronic pain; M54.2 Cervicalgia; M54.9 Dorsalgia, unspecified
CPT/HCPCS: 99214

== ENCOUNTER → 2025-05-14 08:35 | Outpatient (BNVA) | payer MEDICARE, MEDICAID, SELFPAY | PROVIDERS: PCP Internal Medicine; Visit Provider Nurse Practitioner Family | DX: M54.2 Cervicalgia (principal); G89.29 Other chronic pain; R42 Dizziness and giddiness; R51.9 Headache, unspecified; M54.9 Dorsalgia, unspecified | CPT/HCPCS: 99212 ==